=== PATIENT | male | born 1960 | race Caucasian/White ===

== ENCOUNTER → 2016-10-30 | Emergency (ER) | payer BC ==
[~2016-10-30] MED LIST: DENIES HOME MEDS
[2016-10-30 11:31] LABS: BASOPHILS 0.2 %; BASOPHILS ABSOLUTE 0.01 10/3/uL (0.0-0.16); EOSINOPHILS 0.4 %; EOSINOPHILS ABSOLUTE 0.02 10/3/uL (0.0-0.53); ER CBC TAT 0 Hrs 11 Mins; HEMATOCRIT 43.9 % (40.0-51.0); HEMOGLOBIN 15.3 g/dL (13.6-17.8); IMMATURE GRANULOCYTES 0.2 %; IMMATURE GRANULOCYTES ABSOLUTE 0.01 10/3/uL (0.0-0.11); LYMPHOCYTES 16.1 %; LYMPHOCYTES ABSOLUTE 0.76 10/3/uL (0.67-4.30); MANUAL DIFF NO %; MEAN CORPUS HGB CONC 34.9 g/dL (32.0-36.0); MEAN CORPUSCULAR HEMOGLOB 31.5 pg (26.0-34.0); MEAN CORPUSCULAR VOLUME 90.5 fL (80-100); MONOCYTES 9.3 %; MONOCYTES ABSOLUTE 0.44 10/3/uL (0.21-1.20); NEUTROPHILS 73.8 %; NEUTROPHILS ABSOLUTE 3.49 10/3/uL (2.02-8.40); PLATELET COUNT 135 10/3/uL (150-400); RBC DISTRIBUTION WIDTH 12.4 % (12.0-16.0); RED CELL COUNT 4.85 10/6/uL (4.7-6.1); WHITE BLOOD CELLS 4.7 10/3/uL (4.5-10.5)
[2016-10-30 11:41] LABS: INFLUENZA A SCREEN NEGATIVE (NEGATIVE); INFLUENZA B SCREEN NEGATIVE (NEGATIVE)
[2016-10-30 11:42] LABS: BUN (BLOOD UREA NITROGEN) 14 MG/DL (6-23); CHLORIDE, SERUM 106 MMOL/L (96-112); CREATININE 1.05 MG/DL (0.70-1.30); DIRECT BILIRUBIN 0.1 MG/DL (0.0-0.4); GFR AFRICAN AMERICAN 93 ML/MIN (>=60); GFR NON AFRICAN AMERICAN 80 ML/MIN (>=60); GLUCOSE, SERUM 104 MG/DL (60-99); INDIRECT BILIRUBIN(NOT ORDER) 0.7 MG/DL (0.1-0.9); SGOT(AST) 20 U/L (5-40); SGPT(ALT) 23 U/L (5-65); SODIUM, SERUM 144 MMOL/L (135-148); TOTAL BILIRUBIN 0.8 MG/DL (0-1.2); TOTAL PROTEIN 6.3 G/DL (6.0-8.5)
[2016-10-30 11:43] LABS: A/G RATIO 1.3 (0.7-1.9); ALBUMIN 3.5 G/DL (3.5-5.0); ALKALINE PHOSPHATASE 65 U/L (45-117); CALCIUM, SERUM 8.5 MG/DL (8.5-10.4); CO2 (CARBON DIOXIDE) 28 MMOL/L (24-34); GLOBULIN 2.8 G/DL (2.5-4.1); POTASSIUM, SERUM 3.7 MMOL/L (3.5-5.3)
[2016-10-30 12:26] LABS: HEPATITIS B SURFACE ANTIGEN NON-REACTIVE (NON-REACT)
[2016-10-30 12:54] LABS: HEPATITIS B CORE AB IGM NON-REACTIVE (NON-REAC); HEPATITIS C ANTIBODY NON-REACTIVE (NON-REACT)
[2016-10-30 12:56] LABS: HEP A ANTIBODY IGM NON-REACTIVE (NON-REACT)
== END | disposition home or self-care (01) ==
LOC: ER 11:16
PROVIDERS: Nurse Practitioner
DX: R53.81 Other malaise (principal)
CPT/HCPCS: 80053; 80074; 82248; 85025; 87804; 99283